=== PATIENT | female | born 1985 | race Caucasian/White ===

== ENCOUNTER 2017-10-23 07:45 | Inpatient (IN) | payer OTHER ==
[~2017-10-23] VITALS: Ht 154.9 cm; Wt 3.2 kg
[2017-10-23] MEDS ORDERED: PRENATAL 19 TA1 EACH PO (09:02)
== END 2017-11-03 13:13 | DRG 766 ==
LOC: LDR 10-24 07:45 → NUR 10-24 07:45 → O/R 10-31 06:20 → LDR 10-31 07:45 → OB/GYN 10-31 13:45
PROVIDERS: Obstetrics & Gynecology
PROC: 0UL70ZZ Occlusion of Bilateral Fallopian Tubes, Open Approach (ICD-10-PCS; 2017-10-31)
PROC: 4A033R1 Measurement of Arterial Saturation, Peripheral, Percutaneous Approach (ICD-10-PCS; 2017-10-31)
PROC: 4A1HXCZ Monitoring of Products of Conception, Cardiac Rate, External Approach (ICD-10-PCS; 2017-10-31)
PROC: 10D00Z1 Extraction of Products of Conception, Low, Open Approach (ICD-10-PCS; principal; 2017-10-31 09:15)
DX: O48.0 Post-term pregnancy (principal); O34.211 Maternal care for low transverse scar from previous cesarean delivery; Z3A.40 40 weeks gestation of pregnancy; Z37.0 Single live birth; Z30.2 Encounter for sterilization; Z22.330 Carrier of Group B streptococcus

== ENCOUNTER 2017-11-05 14:42 | Emergency (ER) | payer OTHER ==
[~2017-11-05] VITALS: Ht 154.9 cm; Wt 96.2 kg
[~2017-11-05 14:42] MED LIST: PRENATAL 19 TA1 EACH PO
[2017-11-05] MEDS ORDERED: MUCINEX1200 MG PO (18:06)
== END 2017-11-05 18:37 | disposition home or self-care (01) ==
LOC: ER 14:42
DX: J11.1 Influenza due to unidentified influenza virus with other respiratory manifestations (principal); B34.9 Viral infection, unspecified